=== PATIENT | male | born 1985 | race Caucasian/White ===

== ENCOUNTER 2024-02-11 09:09 | Emergency (ER) | payer OTHER, SELFPAY ==
[2024-02-11 09:10] VITALS: BP 129/78; PULSE 91; RESP 18; TEMP 37; O2SAT 98; BMI 25.9
--- NOTE | 2024-02-11 09:29 | EDS_ITS ---
HPI History of Present Illness Chief Complaint: General Illness Detail of Chief Complaint: Body aches. Sore throat. Since . Informant: patient Onset/Context/Timing Onset: Days Context: Gradual Onset Timing: Continuous Current Severity: Mild Maximum Severity: Mild Narrative Narrative: Healthy 38-year-old male complaining of sore throat and joint pain since last . Denies vomiting or diarrhea. Low-grade fever. Prior similar symptoms: No Recent Illness/Hospitalization: No PFSH PFSH Medical History no medical history no medical history Allergy/AdvReac Type Severity Reaction Status Date / Time No Known Allergies Allergy Verified 02/11/24 09:10 Family History no significant family his Surgical History no surgical history Social History Smoking Status: Never smoker ROS ROS ED ROS Narrative Sore throat. Low-grade fever. Joint pain. Constitutional Constitutional ED: Reports fever(s) and subjective; Denies chills Eyes Eyes: Denies blurry vision ENT ENT ED: Reports sore throat; Denies ear pain Cardiovascular Cardiovascular: Denies chest pain Respiratory/Chest Respiratory/Chest: Denies cough or dyspnea Gastrointestinal Gastrointestinal: Denies abdominal pain Genitourinary Genitourinary ED: Denies dysuria or hematuria Musculoskeletal Musculoskeletal: Denies arthralgias, back pain, myalgias or neck pain Integumentary Denies abscess or Abrasions Neurologic Neurologic: Denies paresthesias Psychiatric Psychiatric: Denies anxiety Endocrine Endocrinology: Denies cold intolerance Hematologic/Lymphatic Hematologic/Lymphatic: Reports none Allergic/Immunologic Allergic/Immunologic ED: Denies mouth swelling or tongue swelling EXAM Physical Exam Narrative Exam Narrative: Well-appearing 38-year-old male. Vital signs stable afebrile. H EENT exam bilateral tonsils have white exudate. Not significantly enlarged. There is no peritonsillar abscess. He has no trouble swallowing or breathing. This could be strep throat Neck mild anterior chain lymphadenopathy. Trachea midline. Lungs clear to auscultation bilaterally. Heart regular rhythm rate about 90 no murmur. Chest wall and ribs nontender. Abdomen soft nontender. Moving all 4 extremities. He has normal range of motion both upper and lower extremities. Normal strength. There is no significant swelling or redness to any joints. Skin there is no rash. Back is nontender. Neurologically is awake and alert with no focal motor deficits. Const Vital Signs: 02/11/24 09:09 02/11/24 09:10 02/11/24 10:42 Temperature 98.6 F 98.1 F Temperature Source Temporal Oral Pulse Rate 91 91 Respiratory Rate 18 16 Respiratory Effort Normal Respiratory Pattern Normal Blood Pressure 129/78 H 121/83 H Blood Pressure Mean 95 95 Pulse Ox 98 98 Oxygen Delivery Method Room Air Room Air Positive well nourished and well developed; Negative for obese, cachectic, contractures or unkempt General Appearance ED: well developed and NAD; Negative for unkempt, cachectic, contractures, cyanotic, diaphoretic or pallor Nutritional Appearance: Negative for cachectic or obese HEENT Reports moist mucous membranes HEENT Narrative: Denies recent illness. Posterior pharyngeal exudate bilaterally. No trouble swallowing or breathing. Negative for trauma or tenderness Eyes PERRL and EOMs intact bilaterally General Eye ED: Negative for pale conjunctiva or scleral icterus Neck No no lymphadenopathy, supple and no JVD Neck Narrative: Anterior chain lymphadenopathy. General: tenderness Chest Wall inspection of chest normal and palpation of chest normal Resp normal respiratory effort and clear to auscultation bilaterally Effort and Inspection: Negative for retractions Auscultation: Negative for rales, rhonchi or wheezes Cardio regular rate, regular rhythm, S1 normal heart sound, S2 normal heart sound and no murmurs Palpation: Negative for palpable S3 or palpable S4 Rate: Negative for bradycardia or tachycardic Rhythm: Negative for abnormal rhythm GI normal to inspection, nondistended, normoactive bowel sounds, non-tender, non- distended and no masses Auscultation: normoactive bowel sounds Palpation: soft; Negative for tender or guarding Back/Spine no CVA tenderness General Back: Negative for CVA tenderness Cervical Spine: Negative for cervical spine tenderness Thoracic Spine / Upper Back: Negative for thoracic spinal tenderness or paraspinal muscle tenderness Lumbar Spine / Lower Back: Negative for lumbar spinal tenderness Extremity normal to inspection General Extremety ED: Negative for edema or tenderness General Extremity: Negative for edema Neuro oriented x3 and CN's II-XII intact bilaterally Sensorium / Orientation: alert Motor Exam: strength 5/5 throughout Psych mental status grossly normal Appearance: Negative for unkempt Attitude: No agitated Mood & Affect: Negative for depressed, anxious or tearful Skin no rashes or lesions noted and no wounds General Skin Exam: Negative for jaundice or pallor Lesions: No lesion noted Rashes: No rashes noted Trauma: Negative for abrasion Wounds: Negative for wounds noted MDM MDM MDM Narrative Medical decision making narrative: 38-year-old male I think you might have strep throat. We also can check a Lyme test. Rapid strep pending. Repeat exam unchanged. Rapid strep negative. Culture pending. Lyme pending. It is a send out. Discussed all that with the patient. To be treated as a viral syndrome. Fluids and rest. Tylenol Motrin. Follow-up if not improving. History & Record Review Discussion w/independent historian: Patient Additional record(s) reviewed:: No prior records Lab Data Attestation: I reviewed the patient's lab results. Lab results narrative: Rapid strep Discharge Plan Triage Chief Complaint: General Illness ED Provider: Yvon Alexandra Dx/Rx/DC Orders Clinical Impression: Viral syndrome Instructions: ED Viral Syndrome (Adult) Primary Care Provider: Gavin Alcazar Referrals: Gavin Alcazar, [Primary Care Provider] - 1 Week if not improving Activity Restrictions/Additional Instructions: Plenty of fluids and rest. Alternate Motrin and Tylenol for pain and inflammation. Follow-up with your doctor if not improving. Your rapid strep test was negative. We will do a culture if that is positive we will call you. The Lyme test is a send out that will be back for several days if it is positive we will notify you. Print Language: Trinidadian Disposition Disposition: Home, Self Care
[2024-02-11 10:42] VITALS: BP 121/83; PULSE 91; RESP 16; TEMP 36.7; O2SAT 98
[2024-02-11 12:23] VITALS: BP 128/68; PULSE 88; RESP 18; TEMP 36.6; O2SAT 99
[2024-02-12 13:08] LABS: Lyme Scn Total Ab w/Rflx Negative (Negative)
== END 2024-02-11 12:25 | disposition home or self-care (01) ==
PROVIDERS: Emergency Provider Emergency Medicine; PCP Family Medicine; Visit Provider Emergency Medicine
DX: B34.9 Viral infection, unspecified (principal)
CPT/HCPCS: 36415; 86618; 87651; 99282